=== PATIENT | female | born 1940 | race Caucasian/White ===

== ENCOUNTER 2016-09-12 23:53 | Emergency (ER) | payer MEDICARE, OTHER ==
--- NOTE | 2016-09-13 19:29 | ER ---
ADMIT: 09/12/2016 RM/LOC: ER [facility] MR#: [id number] ACC#: [id number] [address] [id number] LIZETTEFIONA SATISH Olvera [address] [place], [place] [address] Emergency Room Report SEX: F AGE: 76 : 1940 DATE: 09/12/2016 The patient is a 76-year-old female, who was brought here with chief complaint of new onset weakness. The patient has history of hypertension, per daughter and per son. The patient has been ambulating without difficulty and the last time seen at her baseline normal was at 11:00 p.m. Per son, they left the house and at that time, the patient was in bed and when they came back at 11, they heard yelling and when they got to the patient, who was in the basement, they noticed the patient is falling face-down on the couch which was soft and was not able to move the left upper and left lower extremity, and per daughter and son. The bathroom light and the room light was on, so the patient was walking and the was so far from the bed. The patient also states that she was walking towards the couch and she was walking normal and then she felt dizzy and she fell on the couch. The patient did not lose consciousness. Per EMS, the patient had normal fingerstick blood sugar. The patient had right- sided lower facial droop and also left upper extremity complete weakness and left lower extremity partial weakness. The patient was brought to CT scan stat. CT of the head did not show any active bleeding or midline shift or mass. The patient was examined in the room. The patient was alert and oriented to person, place, and time. Per daughter and per son, the patient had no aphasia and was at her baseline speaking abilities. The patient denied any pain. In the head and neck, the patient had bilateral loss of the vision even perception to light was gone bilaterally, but the patient just denied it and when I asked about seeing the lights or not with the penlight, she could not get the right answers and she tried to guess. Pupils are 3 mm, mildly reactive to light. I did not see any lateral gaze. There is no deviation of the tongue. Sometimes, the patient moves the eyes to all directions, so I did not see any deficit in extraocular movement grossly. Chest is clear. Lungs with normal S1 and S2. Abdomen is soft. The patient could not move the upper extremity at all on the left side. On the left lower extremity, the patient can just move the left ankle and the left toes weakly, but could not lift the left leg at all. On the right side, the patient has mild weakness on the right upper extremity and right lower extremity and could not hold it up as much as needed for NIH score. I did not see any limb ataxia. The patient had loss of sensation to touch on the left upper extremity and left lower extremity and decreased sensation to touch on the right face. The patient was assessed, the neurologist of the [facility], Dr. Camarena was contacted. He agreed also on the tPA administration. At this moment, we were at the window. NIH score calculated, the primary one was 18. TPA administration and suggestion was talked with the daughter and son per both of them, the daughter who is a nurse and medical decision maker for the patient. Also, we talked ADMIT: 09/12/2016 RM/LOC: ER [facility] MR#: [id number] [address] [place] [id number] SATISH ANNE [address] [place] [address] Emergency Room Report SEX: F AGE: 76 : 1940 with the patient about the tPA. They all agreed with the tPA administration. The risk of bleeding was also discussed with them and they acknowledged and understood it. The patient was started on tPA. Before starting tPA, the patient's vision improved and the patient was able to count the fingers bilaterally. Still the patient had no changes in the left upper and lower extremity motor abilities. Per protocol, the patient was given tPA IV. The patient also needs a CT angiogram of the head and neck. Air transfer came, Dr. Lovell from [facility] admitted the patient. The patient was transferred to [facility] through helicopter. At this moment, the patient is alert and oriented to person, place, and time. Open eyes, follows commands. Can protect airways. The patient was sent transfer for higher level of care with a diagnosis of ischemic stroke. Bright Mckeon MD/ durga JOB #: [id number] CC: Bright Mckeon MD, Attending Physician Buck Garcia MD, Family Physician
[2016-10-09] MEDS ORDERED: SYNTHROID DP0.025 MG PO (09:18)
[2016-10-09] MEDS ORDERED: LASIX DPS40 MG PO (09:19)
[2016-10-09] MEDS ORDERED: CADUET 2.5 MG PO (09:19)
[2016-10-09] MEDS ORDERED: POTASSIUM CHLO20 ME2 PO (09:19)
[2016-10-09] MEDS ORDERED: TYLENOL EXTRA500 M1 PO ×2 (09:19→09:24)
[2016-10-09] MEDS ORDERED: VITAMIN D1000 UNI1 PO (09:20)
[2016-10-09] MEDS ORDERED: PLAVIX75 MG PO (09:20)
[2016-10-09] MEDS ORDERED: MACROBID100 MG PO (09:20)
[2016-10-09] MEDS ORDERED: VESICARE5 MG PO (09:21)
[2016-10-09] MEDS ORDERED: SPORTS CREAM85 GM TP (09:21)
[2016-10-09] MEDS ORDERED: MOI STIR PO (09:23)
[2016-10-09] MEDS ORDERED: ESTRACE42.5 GM TP (09:23)
[2016-10-09] MEDS ORDERED: ULTRAM DPS50 MG PO (09:24)
[2016-10-09] MEDS ORDERED: SENOKOT S1 TAB PO (09:24)
== END 2016-09-13 01:30 | disposition short-term general hospital (02) ==
LOC: ER 23:53
DX: I63.9 Cerebral infarction, unspecified (principal); I10 Essential (primary) hypertension

== ENCOUNTER 2016-09-18 11:00 | Inpatient (IN) | payer MEDICARE, OTHER ==
[~2016-09-18] VITALS: Ht 162.6 cm; Wt 118.5 kg
--- NOTE | 2016-09-19 22:24 | NUR ---
DAY SHIFT SUMMARY:SEE OT FIM AND NOTESRT GROOMING, SHOWERINNG, DRESSING AND SHOWER TRANSFER. IS ON DETROL AND SENNA S. AMBULATES < 50FT WITH PLATFORM WALKER AND 1 ASSIST, NEEDS MUCH ASSIST AND CUING, TOTAL ASSIST FOR WC PROPULSION
--- NOTE | 2016-10-02 18:33 | NUR ---
DAY SHIFT SUMMARY: EXTRA TIME AND/OR DEVICE NEEDED FOR GROOMING, DRESSING TOILETING, AND BED/CHAIR/TOILET TRANSFERS. INDEPENDENT EATING. MIN ASSIST OF 1 TO AMBULATE WITH WALKER IN [place]
[2016-10-09] MEDS ORDERED: SYNTHROID DP0.025 MG PO (09:18)
[2016-10-09] MEDS ORDERED: TYLENOL EXTRA500 M1 PO ×2 (09:19→09:24)
[2016-10-09] MEDS ORDERED: POTASSIUM CHLO20 ME2 PO (09:19)
[2016-10-09] MEDS ORDERED: CADUET 2.5 MG PO (09:19)
[2016-10-09] MEDS ORDERED: LASIX DPS40 MG PO (09:19)
[2016-10-09] MEDS ORDERED: VITAMIN D1000 UNI1 PO (09:20)
[2016-10-09] MEDS ORDERED: MACROBID100 MG PO (09:20)
[2016-10-09] MEDS ORDERED: PLAVIX75 MG PO (09:20)
[2016-10-09] MEDS ORDERED: SPORTS CREAM85 GM TP (09:21)
[2016-10-09] MEDS ORDERED: VESICARE5 MG PO (09:21)
[2016-10-09] MEDS ORDERED: MOI STIR PO (09:23)
[2016-10-09] MEDS ORDERED: ESTRACE42.5 GM TP (09:23)
[2016-10-09] MEDS ORDERED: ULTRAM DPS50 MG PO (09:24)
[2016-10-09] MEDS ORDERED: SENOKOT S1 TAB PO (09:24)
--- NOTE | 2016-11-10 09:09 | DS ---
ADMIT: 09/18/2016 RM/LOC: 604 [facility] MR#: [id number] [address] [facility] [address] [place] [id number] LIZETTEFIONA SATISH Olvera [address] [place] [address] General Discharge Summary SEX: F AGE: 76 : 1940 ADMISSION DATE: 09/18/2016 DISCHARGE DATE: 10/08/2016 DISCHARGE DIAGNOSES: Stroke 01.1, left body involvement, right brain; I63.511, cerebral infarction due of unspecified occlusion or stenosis of right middle cerebral artery, onset 09/12/2016, comorbid conditions per initial H and P. Other diagnoses per hospital course below. HOSPITAL COURSE: Please see my initial H and P for details prior to transfer to the IRU. Early ambulation, SCDs, LADI hose used for DVT prophylaxis as there was cerebral hemorrhage previously. Pain and bowel regimen adjusted. Dr. Garcia was notified of admission. Lab was monitored regularly. Ultram with Tylenol for pain. Dietitian followed to optimize nutrition. Pharmacy followed to optimize medication management. Senokot-S, Dulcolax suppository for constipation. Sports cream for knee pain, osteoarthritis. Tylenol scheduled for knee arthritis. Synthroid changed to 0700 for sleep. PVRs to monitor for urinary retention. PVRs were 41 and 97, within normal limits. Lasix started per home routine and due to edema. DuoNeb and EzPAP for hypoxemia. Tylenol and tramadol adjusted. Sportscreme adjusted. Bowel regimen adjusted. Vitamin D deficiency replaced. DuoNeb was no longer necessary. Dry mouth thought to be secondary to Detrol LA so that was discontinued and tried Mirabegron. Biotene for dry mouth. Humidification blow-by through RT. Lasix adjusted due to frequency of urination and azotemia. Anemia. Hemoglobin monitored. UA with micro, no culture due to urinary frequency. Myrbetriq discontinued, restarted Detrol LA. Developed UTI, treated with Macrobid. PVRs remained within normal limits. Blow-by humidity on at night. UA with micro to check on sufficiency of antibiotic. Trazodone started for insomnia and nocturia. Estrace started intravaginally for the overactive bladder and nocturia. Detrol LA discontinued, started VESIcare. Patient was medically stable at the time of discharge. Please see IRU interdisciplinary discharge summary for details regarding progress in therapy. DISCHARGE DISPOSITION: Home with home health RN, PT, OT, home health aide from [facility], has a walker and shower chair for home. DISCHARGE MEDICATIONS: Please see discharge med rec. She will continue Macrobid for 3 days and then stop, was given #30 of Ultram with 3 refills. FOLLOWUP: Dr. Garcia in 1 week with BMP, hemoglobin, UA. Monroe Arciniega MD/ durga JOB #: [id number] CC:
== END 2016-10-08 12:40 | disposition home health service (06) | DRG 57 ==
LOC: 6IRU 13:35
PROVIDERS: ADMIT Physical Medicine & Rehabilitation
PROC: F08Z0ZZ Bathing/Showering Techniques Treatment (ICD-10-PCS; principal; 2016-09-18)
PROC: F07Z9ZZ Gait Training/Functional Ambulation Treatment (ICD-10-PCS; principal; 2016-09-18)
PROC: F08Z2FZ Grooming/Personal Hygiene Treatment using Assistive, Adaptive, Supportive or Protective Equipment (ICD-10-PCS; principal; 2016-09-18)
DX: I69.354 Hemiplegia and hemiparesis following cerebral infarction affecting left non-dominant side (principal); I11.0 Hypertensive heart disease with heart failure; I50.9 Heart failure, unspecified; N39.0 Urinary tract infection, site not specified; Z68.42 Body mass index [BMI] 45.0-49.9, adult; R27.8 Other lack of coordination; R26.89 Other abnormalities of gait and mobility; K59.00 Constipation, unspecified; E66.01 Morbid (severe) obesity due to excess calories; I10 Essential (primary) hypertension; E78.5 Hyperlipidemia, unspecified; D64.9 Anemia, unspecified; E03.9 Hypothyroidism, unspecified; M17.9 Osteoarthritis of knee, unspecified; R68.2 Dry mouth, unspecified; I87.2 Venous insufficiency (chronic) (peripheral); M54.5 Low back pain; R35.1 Nocturia; R35.0 Frequency of micturition; Z92.82 Status post administration of tPA (rtPA) in a different facility within the last 24 hours prior to admission to current facility